=== PATIENT | male | born 1965 | race African-American/Black ===

== ENCOUNTER 2023-12-22 23:27 | Emergency (ER) | payer OTHER ==
[~2023-12-22] VITALS: Ht 170.2 cm; Wt 77.3 kg
[2023-12-23] MEDS ORDERED: DICL100G60 TP (00:11)
[2023-12-23] MEDS ORDERED: LIDO1ADH83 TP (00:11)
[2023-12-23] MEDS ORDERED: ASPI-1450 PO (00:11)
[2023-12-23] MEDS ORDERED: BUPR1FIL7 SL (00:11)
[2023-12-23] MEDS ORDERED: ACETAMINOPHEN/CODEINE 300-30 MG TABLET PO ONE (00:45)
[2023-12-23] MEDS ORDERED: LIDOCAINE 1% 10 ML VIAL SQ ONE (00:45)
[2023-12-23 03:00] VITALS: BP 141/79; PULSE 85; RESP 15; TEMP 98.8
== END 2023-12-23 03:07 | disposition home or self-care (01) ==
LOC: EMS 23:34
DX: S01.21XA Laceration without foreign body of nose, initial encounter (principal); F32.A Depression, unspecified; I10 Essential (primary) hypertension; Z98.890 Other specified postprocedural states; Y08.89XA Assault by other specified means, initial encounter; Y93.89 Activity, other specified; Y92.89 Other specified places as the place of occurrence of the external cause; Y99.8 Other external cause status
CPT/HCPCS: 99284; 12013; 70450; 70486; 72125; J3490

== ENCOUNTER → 2024-01-30 | Outpatient (CLI) | payer OTHER ==
[~2024-01-30] MED LIST: ASPI-1450 PO; BUPR1FIL7 SL; DICL100G60 TP; LIDO1ADH83 TP
== END | disposition home or self-care (01) ==
LOC: RADMN 09:10
PROVIDERS: ATTEND Family Medicine
DX: J43.2 Centrilobular emphysema (principal); I70.0 Atherosclerosis of aorta; I25.10 Atherosclerotic heart disease of native coronary artery without angina pectoris
CPT/HCPCS: 71250